=== PATIENT | female | born 1945 | race Caucasian/White ===

== ENCOUNTER → 2018-04-16 | Outpatient (CLI) | payer OTHER, MEDICARE ==
--- NOTE | 2018-04-16 13:44 | CPEEG ---
[f rep st] ELECTROENCEPHALOGRAM DATE OF STUDY: 04/16/2018 INTERPRETATION: Essentially normal EEG during wakefulness and sleep. There were no potentially epil eptogenic abnormalities present during the recording. REPORT: This EEG contains 9-10 Hz alpha to the posterior head regions. There was no abnormal activa tion at rest, during photic stimulation or hyperventilation. The patient became drowsy and fell into light sleep during the study. During drowsiness, the patient had bitemporal transients composed of intermittent polymorphic theta activity. This is a normal drowsy pattern in this age group. There w as no abnormal activation during drowsiness, sleep, or during times of arousal. /[id number]/MODL
== END ==
LOC: FCPNEURO 09:20
PROVIDERS: ATTEND Psychiatry & Neurology Neurology
DX: R25.1 Tremor, unspecified (principal)